=== PATIENT | male | born 1930 | race Caucasian/White ===

== ENCOUNTER → 2016-11-11 | Outpatient (CLI) | payer MEDICARE ==
[~2016-11-11] MED LIST: ATOR10TA56 PO; HCT25T PO; METO-272 PO
--- NOTE | 2016-11-11 15:24 | Diagnostic Imaging Report ---
CLINICAL INDICATION: Patient with thoracic pain. EXAM: MRI of the thoracic spine performed without IV contrast. Sequences include sagittal T2, sagittal T1, sagittal STIR, axial T1, and axial T2. COMPARISON: None. FINDINGS: There is an acute or subacute roughly 60% anterior wedge compression fracture deformity of the T7 vertebral body. There is a moderate to large amount of marrow edema seen within the vertebral body. There is minimal adjacent paravertebral thickening. There is no retropulsed fragment. There is no other acute thoracic spine fracture or dislocation. 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 There is an area of sclerosis or bone island involving the T9 vertebral body. There is a low T1 signal area seen involving most of the right T3 transverse process with high T2 signal. The remainder of the vertebral body signal is otherwise unremarkable. There is no fracture seen through the region. The thoracic spinal cord caliber and signal are unremarkable. There are degenerative spurs throughout the thoracic spine and facet arthropathy. There is a minimal sized posterior disc bulge at the T7-T8 and T8-T9 levels. There is minimal ligamentum flavum buckling posteriorly at the T8-T9 level. The thoracic spine shows no significant central spinal canal or neuroforaminal narrowing. Bilateral renal cysts are seen. IMPRESSION: 1. There is an acute or subacute compression fracture deformity of the T7 vertebral body. 2. There is an area of abnormal signal within the right T3 transverse process. There is no fracture seen in the region. This may represent an infiltrative process or metastatic disease versus occult fracture. Followup MRI of the thoracic spine with and without IV contrast in 2 months is suggested 3. 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 There is no significant central spinal canal or neuroforaminal narrowing. 4. There is thoracic spine degenerative disease with no significant central canal or neuroforaminal narrowing. Report given to nurse (Arabella) at 3:23 p.m. 11/11/2016/cb Report faxed to [phone]/cb Dictated by: Dictated on workstation # [id number]
== END ==
LOC: RAD 13:07
PROVIDERS: ATTEND Physician Assistant Medical
DX: M54.6 Pain in thoracic spine (principal); M48.54XA Collapsed vertebra, not elsewhere classified, thoracic region, initial encounter for fracture; M51.34 Other intervertebral disc degeneration, thoracic region
CPT/HCPCS: 72146